=== PATIENT | female | born 1980 | race Caucasian/White ===

== ENCOUNTER 2019-09-24 16:58 | Emergency (ER) | payer OTHER ==
--- NOTE | 2019-09-24 17:34 | ERPHSYRPT ---
- History of Present Illness Time Seen by Provider: 09/24/19 17:34 Source: patient, family Exam Limitations: no limitations Patient Subjective Stated Complaint: STATES TWISTED RIGHT KNEE WHILE GOING DOWN STEPS TODAY AROUND LUNCH TIME. HAS BEEN UNABLE TO BEAR WEIGHT SINCE THEN. Triage Nursing Assessment: TO ROOM PER WHEELCHAIR. SKIN W/D, COLOR NORMAL. ASSISTED TO BED FROM W/C. UNABLE TO BEAR WEIGHT ON RIGHT LEG. GOOD PEDAL PULSE TO RIGHT FOOT. NO DEFORMITY NOTED. DOES HAVE SLIGHT SWELLING. Physician History: 39 y/o morbidly obese white female presents with right knee pain after twisting it while walking down steps of stairs. occurred approx noon today. pt can bear weight but hurts to do so. Method of Injury: twisted Occurred: this afternoon Quality: constant, aching Severity of Pain-Max: moderate Severity of Pain-Current: moderate Lower Extremities Pain: knee: right Modifying Factors: Improves With: movement Associated Symptoms: other (hurts to bear weight) Allergies/Adverse Reactions: No Known Drug Allergies Allergy (Verified 09/20/16 00:02) Home Medications: Clonazepam 0.5 mg [Klonopin 0.5 MG] 1 mg PO TID PRN 04/13/16 [History] Escitalopram Oxalate [Lexapro] 20 mg PO HS 04/13/16 [History] Temazepam 15 mg [Restoril 15 MG] 30 mg PO HS 04/13/16 [History] Gabapentin [Neurontin] 300 mg PO TID 09/24/19 [History] Paliperidone Palmitate [Invega Trinza] 325 mg IM UD 09/24/19 [History] Sucralfate 1 gm [Carafate 1 GM] 1 g ACHS 09/24/19 [History] Hx Tetanus, Diphtheria Vaccination/Date Given: No Hx Influenza Vaccination/Date Given: No Hx Pneumococcal Vaccination/Date Given: No - Review of Systems Constitutional: No Symptoms Eyes: No Symptoms Ears, Nose, & Throat: No Symptoms Respiratory: No Symptoms Cardiac: No Symptoms Abdominal/Gastrointestinal: No Symptoms Genitourinary Symptoms: No Symptoms Musculoskeletal: Injury, Joint Pain (right knee) Skin: No Symptoms Neurological: No Symptoms Psychological: No Symptoms Endocrine: No Symptoms Hematologic/Lymphatic: No Symptoms Immunological/Allergic: No Symptoms All Other Systems: Reviewed and Negative - Past Medical History Pertinent Past Medical History: Yes Neurological History: No Pertinent History ENT History: No Pertinent History Cardiac History: No Pertinent History Respiratory History: No Pertinent History Endocrine Medical History: No Pertinent History Musculoskeletal History: Osteoarthritis GI Medical History: No Pertinent History History: No Pertinent History Psycho-Social History: Anxiety, Bipolar Female Reproductive Disorders: No Pertinent History 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 at times - Past Surgical History Past Surgical History: Yes Neuro Surgical History: No Pertinent History Cardiac: No Pertinent History Respiratory: No Pertinent History Gastrointestinal: Appendectomy, Cholecystectomy Genitourinary: No Pertinent History Musculoskeletal: Orthopedic Surgery Female Surgical History: Hysterectomy Other Surgical History: Bilateral knee surgery, left hand, bilateral feet, right knee surgery - Social History Smoking Status: Current every day smoker How long have you smoked: 20 Exposure to second hand smoke: Yes Alcohol Use: None Drug Use: none Patient Lives Alone: No Significant Family History: no pertinent family hx - Female History Hx Now: No - Nursing Vital Signs Nursing Vital Signs: Initial Vital Signs Temperature 98 F 09/24/19 17:12 Pulse Rate 75 09/24/19 17:12 Respiratory Rate 16 09/24/19 17:12 Blood Pressure 147/85 09/24/19 17:12 O2 Sat by Pulse Oximetry 95 09/24/19 17:12 Pain Scale Pain Intensity 7 - Physical Exam General Appearance: no apparent distress, alert, anxiety Eyes, Ears, Nose, Throat Exam: normal ENT inspection, moist mucous membranes Neck Exam: normal inspection, non-tender, supple, full range of motion Cardiovascular/Respiratory Exam: chest non-tender Gastrointestinal/Abdominal Exam: non-tender Back Exam: normal inspection, normal range of motion, No CVA tenderness, No vertebral tenderness Hips Exam: bilateral: non-tender, normal inspection, normal range of motion, no evidence of injury Legs Exam: bilateral leg: non-tender, normal inspection, normal range of motion , no evidence of injury Knees Exam: right knee: bone tenderness, soft tissue tenderness, swelling, left knee: non-tender, normal inspection, normal range of motion, no evidence of injury Ankle Exam: bilateral ankle: non-tender, normal inspection, normal range of motion, no evidence of injury Foot Exam: bilateral foot: non-tender, normal inspection, normal range of motion , no evidence of injury Neuro/Tendon Exam: normal sensation, normal motor functions, normal tendon functions Mental Status Exam: alert, oriented x 3, cooperative Skin Exam: normal color, warm, dry SpO2 Interpretation: normal SpO2: 95 O2 Delivery: Room Air - Course Nursing assessment & vital signs reviewed: Yes Ordered Tests: Active Orders 24 hr Category Date Time Status KNEE (3 VIEWS) Stat Exams 09/24/19 18:46 Taken Medication Summary Discontinued Medications Generic Name Dose Route Start Last Admin Trade Name Freq PRN Reason Stop Dose Admin Hydrocodone Bitart/Acetaminophen 1 tab 09/24/19 18:25 09/24/19 18:30 [place] 5/325 Mg PO 09/24/19 18:26 1 tab STAT ONE Administration Hydrocodone Bitart/Acetaminophen Confirm 09/24/19 18:29 [place] 5/325 Mg Administered 09/24/19 18:30 Dose 1 tab .ROUTE .STK-MED ONE - Progress Progress: unchanged Progress Note: 09/24/19 19:04 right knee xray-no acute fx or dislocation Counseled pt/family regarding: diagnosis, need for follow-up, rad results - Departure Departure Disposition: Home Clinical Impression: Right knee sprain Condition: Stable Critical Care Time: No Referrals: SHIVAM CONTRERAS [Nurse Practioner] - Additional Instructions: ice pack to area 3 times daily for 2 days add ibuprofen for pain. follow up with primary doctor for persistent symptoms Prescriptions: Hydrocodone/APAP 5/325 [[place] 5/325 mg] 1 each PO Q12H PRN PRN #10 tablet MDD 2 PRN Reason: Pain
[2019-09-24 18:21] VITALS: PULSE 72
[2019-09-24] MEDS ORDERED: NORCO 5/325 MG PO ONE (18:25)
[2019-09-24] MEDS ORDERED: NORCO 5/325 MG ONE (18:29)
[2019-09-24 19:21] VITALS: BP 118/61; O2SAT 97
--- NOTE | 2019-09-25 09:26 | XRAY ---
Indication: Pain following twisting injury. Comparison: May 21, 2016. 3 views of the right knee demonstrates progressive worsening mild/moderate tricompartmental degenerative changes. No new/acute bony, articular, or soft tissue abnormalities.
== END 2019-09-24 19:22 | disposition home or self-care (01) ==
LOC: ED 16:58
DX: S83.91XA Sprain of unspecified site of right knee, initial encounter (principal); X50.1XXA Overexertion from prolonged static or awkward postures, initial encounter; Y93.01 Activity, walking, marching and hiking; Y92.9 Unspecified place or not applicable; M25.561 Pain in right knee; M19.90 Unspecified osteoarthritis, unspecified site
CPT/HCPCS: 73562; 99284; A9270-GY